=== PATIENT | male | born 1990 | race African-American/Black ===

== ENCOUNTER 2021-03-31 11:52 | Emergency (ER) | payer OTHER ==
[~2021-03-31] VITALS: Ht 182.9 cm; Wt 85.3 kg
[2021-03-31] MEDS ORDERED: TRIUMEQ TABLET1 EACH PO (12:30)
[2021-03-31] MEDS ORDERED: CIPRO HC OTIC S10 ML OT (15:59)
[2021-03-31] MEDS ORDERED: AMOX-CLAV 875-1 EACH PO (15:59)
== END 2021-03-31 16:17 | disposition home or self-care (01) ==
LOC: ER 11:52
DX: B34.9 Viral infection, unspecified (principal); H60.8X1 Other otitis externa, right ear; Z03.818 Encounter for observation for suspected exposure to other biological agents ruled out